=== PATIENT | male | born 1945 | race Caucasian/White ===

== ENCOUNTER 2018-03-12 08:24 | Day surgery (SDC) | payer MEDICARE ==
[~2018-03-12 08:24] MED LIST: ACETAMINOPHEN 325 MG TAB PO
[2018-03-12] MEDS ORDERED: PHENYLEPHRINE 2.5% OPHTH SOL 2ML As Ordered ×2 (08:43)
[2018-03-12] MEDS ORDERED: OFLOXACIN 0.3 % (OCUFLOX) OPTH SOL 5ML As Ordered ×2 (08:43)
[2018-03-12] MEDS ORDERED: CYCLOPENTOLATE 2% OPHTH SOLN 2ML BTL As Ordered ×2 (08:43)
[2018-03-12] MEDS ORDERED: TROPICAMIDE 1% OPHTH SOLN 2ML As Ordered ×2 (08:43)
[2018-03-12] MEDS: LIDOCAINE 3.5 % 1ML OPHTH TOPICAL GEL OU ×2 (09:05)
[2018-03-12] MEDS: CYCLOPENTOLATE 2% OPHTH SOLN 2ML BTL OD ×2 (09:05)
[2018-03-12] MEDS: PHENYLEPHRINE 2.5% OPHTH SOL 2ML OD ×2 (09:05)
[2018-03-12] MEDS: OFLOXACIN 0.3 % (OCUFLOX) OPTH SOL 5ML OD ×2 (09:05)
[2018-03-12] MEDS: TROPICAMIDE 1% OPHTH SOLN 2ML OD ×2 (09:05)
[2018-03-12] MEDS ORDERED: MIDAZOLAM INJ 2 MG/2 ML VIAL (J2250) As Ordered ×2 (09:51)
[2018-03-12] MEDS ORDERED: fentaNYL 100 MCG/2 ML INJECTION (J3010) As Ordered ×2 (09:51)
[2018-03-12] MEDS: POVIDONE-IODINE 5% OPHTH PREP SOL 30ML As Ordered ×2 (09:53)
[2018-03-12] MEDS: MOXIFLOXACIN IN BSS 0.25MG/0.25ML INTRACAMERAL INJ (OR EYE ONLY)(J2280) As Ordered (09:54)
[2018-03-12] MEDS: HEALON DUET (HEALON 10MG/ML 0.55ML & HEALON ENDOCOAT 30MG/ML 0.85ML) As Ordered ×2 (09:54)
[2018-03-12] MEDS: TRIAMCINOLONE PRES FR 40 MG/ML 1ML(TRIESENCE)(OR EYE ONLY)(J3300 PER 1MG) As Ordered ×2 (09:54)
[2018-03-12] MEDS: BSS with VANC/TOB/EPI for EYE CASES IR ×2 (09:54)
[2018-03-12] MEDS: PHENYLEPHRINE HCL 10 % OPHTH. SOL 5ML OD ×2 (09:54)
[2018-03-12] MEDS: LIDOCAINE 1% SDV 5 ML VIAL As Ordered ×2 (09:54)
[2018-03-12] MEDS ORDERED: TRIMETHOBENZAMIDE 300 MG CAP PO ×2 (10:30)
[2018-03-12] MEDS: AcetaZOLAMIDE 500 MG ER CAP PO ×2 (10:31)
== END 2018-03-12 10:38 | disposition home or self-care (01) ==
LOC: M SDC 08:24
DX: H25.9 Unspecified age-related cataract (principal); H21.81 Floppy iris syndrome; I25.10 Atherosclerotic heart disease of native coronary artery without angina pectoris; I10 Essential (primary) hypertension; E78.5 Hyperlipidemia, unspecified; J44.9 Chronic obstructive pulmonary disease, unspecified; Z79.82 Long term (current) use of aspirin; Z79.899 Other long term (current) drug therapy; Z92.3 Personal history of irradiation; Z85.46 Personal history of malignant neoplasm of prostate
CPT/HCPCS: 66982

== ENCOUNTER 2018-03-19 10:08 | Day surgery (SDC) | payer MEDICARE ==
[~2018-03-19 10:08] MED LIST changes: +PHENYLEPHRINE HCL 10 % OPHTH. SOL 5ML OS
[2018-03-19] MEDS ORDERED: CYCLOPENTOLATE 2% OPHTH SOLN 2ML BTL As Ordered (10:20)
[2018-03-19] MEDS ORDERED: TROPICAMIDE 1% OPHTH SOLN 2ML As Ordered (10:20)
[2018-03-19] MEDS ORDERED: PHENYLEPHRINE 2.5% OPHTH SOL 2ML As Ordered (10:20)
[2018-03-19] MEDS ORDERED: OFLOXACIN 0.3 % (OCUFLOX) OPTH SOL 5ML As Ordered (10:20)
[2018-03-19] MEDS ORDERED: TRIMETHOBENZAMIDE 300 MG CAP PO (10:30)
[2018-03-19] MEDS: CYCLOPENTOLATE 2% OPHTH SOLN 2ML BTL OS (10:44)
[2018-03-19] MEDS: TROPICAMIDE 1% OPHTH SOLN 2ML OS (10:45)
[2018-03-19] MEDS: LIDOCAINE 3.5 % 1ML OPHTH TOPICAL GEL OU (10:45)
[2018-03-19] MEDS: OFLOXACIN 0.3 % (OCUFLOX) OPTH SOL 5ML OS (10:45)
[2018-03-19] MEDS: PHENYLEPHRINE 2.5% OPHTH SOL 2ML OS (10:45)
[2018-03-19] MEDS: POVIDONE-IODINE 5% OPHTH PREP SOL 30ML As Ordered (11:32)
[2018-03-19] MEDS: LIDOCAINE 1% SDV 5 ML VIAL As Ordered (11:32)
[2018-03-19] MEDS ORDERED: MIDAZOLAM INJ 2 MG/2 ML VIAL (J2250) As Ordered (11:36)
[2018-03-19] MEDS ORDERED: fentaNYL 100 MCG/2 ML INJECTION (J3010) As Ordered (11:36)
[2018-03-19] MEDS: HEALON DUET (HEALON 10MG/ML 0.55ML & HEALON ENDOCOAT 30MG/ML 0.85ML) As Ordered (11:38)
[2018-03-19] MEDS: BSS with VANC/TOB/EPI for EYE CASES IR (11:39)
[2018-03-19] MEDS: TRIAMCINOLONE PRES FR 40 MG/ML 1ML(TRIESENCE)(OR EYE ONLY)(J3300 PER 1MG) As Ordered (11:39)
[2018-03-19] MEDS: MOXIFLOXACIN IN BSS 0.25MG/0.25ML INTRACAMERAL INJ (OR EYE ONLY)(J2280) As Ordered (11:39)
[2018-03-19] MEDS ORDERED: HEALON DUET (HEALON 10MG/ML 0.55ML & HEALON ENDOCOAT 30MG/ML 0.85ML) As Ordered (11:50)
[2018-03-19] MEDS: AcetaZOLAMIDE 500 MG ER CAP PO (12:18)
== END 2018-03-19 12:25 | disposition home or self-care (01) ==
LOC: M SDC 10:08
DX: H25.9 Unspecified age-related cataract (principal); I25.10 Atherosclerotic heart disease of native coronary artery without angina pectoris; Z95.1 Presence of aortocoronary bypass graft; J44.9 Chronic obstructive pulmonary disease, unspecified; Z85.46 Personal history of malignant neoplasm of prostate; Z92.3 Personal history of irradiation; Z79.899 Other long term (current) drug therapy
CPT/HCPCS: 66982

== ENCOUNTER → 2021-02-02 | Outpatient (CLI) | payer MEDICARE, SELFPAY ==
[~2021-02-02] MED LIST changes: -ACETAMINOPHEN 325 MG TAB PO; +AMLO1TAB25 PO; +ASPI81TA26 PO; +CALC500T49 PO; +CLOP75TA2 PO; +CRES40TA PO; +FOLI1TAB11 PO; +FURO20TA2 PO; +ISOVUE-370 76% 100ML VIAL As Ordered ONE; +METH2.5T48 PO; +METO25TA4 PO; +MULT1TAB10 PO; +OMEP40CA97 PO; +OREN250I2 IV; -PHENYLEPHRINE HCL 10 % OPHTH. SOL 5ML OS; +POTA10TA16 PO; +RAMI1CAP26 PO; +VITA100067 PO; +ZETI10TA16 PO
--- NOTE | 2021-02-02 13:47 | REP ---
INDICATION: RHEUMATOID LUNG DISEASE W RHEUMATOID ARTHRITIS OF COMPARISON: None. TECHNIQUE: Standard helical technique after the intravenous administration of 100 cc Isovue 370 FINDINGS: There is bulky mediastinal and right hilar adenopathy with more mild left hilar adenopathy and with some of the enlarged nodes being centrally and or eccentrically calcified. There are no pleural or pericardial effusions. The imaged upper abdomen and imaged osseous structures are within normal limits. Evaluation of the lung [place] shows multiple calcified and centrally calcifying pulmonary nodules. There are no noncalcified pulmonary nodules. In the medial right lung base there is a pleural based irregular density having a maximal dimension of approximately 1.3 cm. In the left lower lobe there is an asymmetric density which appears to be arising from a centrally calcified nodule this measures approximately 1.3 cm in its greatest dimension. Other pleural based asymmetric densities are seen. There is evidence of small bilateral upper lobe parenchymal bulla. Early honeycomb lung formation may be developing in both upper and lower lobe regions. IMPRESSION: 1. Pulmonary nodules as described above. 2. Suspected chronic lung field changes with no priors for comparison as described above. Follow-up as clinically indicated. 3. Adenopathy as described above. Etiology uncertain. Follow-up as indicated. 4. Other findings as described above. <Electronically signed by Freddy Alvarez > 02/02/21 [id number]
== END ==
LOC: M RAD 08:57
PROVIDERS: ATTEND Internal Medicine Pulmonary Disease
DX: M05.10 Rheumatoid lung disease with rheumatoid arthritis of unspecified site (principal); R91.8 Other nonspecific abnormal finding of lung field
CPT/HCPCS: 71260; Q9967

== ENCOUNTER → 2021-07-11 | Outpatient (CLI) | payer MEDICARE ==
[~2021-07-11] MED LIST changes: -ISOVUE-370 76% 100ML VIAL As Ordered ONE; +OMEP40CA4 PO; -OMEP40CA97 PO
--- NOTE | 2021-07-11 15:18 | REP ---
INDICATION: RHEUMATOID LUNG DISEASE W RHEUMATOID ARTHRITIS OF [facility] SITE COMPARISON: 02/02/2021 TECHNIQUE: Axial noncontrast images from the thoracic inlet to the upper abdomen with coronal and sagittal reformations. This CT examination was performed using the following dose reduction techniques: Automated exposure control, adjustment of mA and/or kv according to the patient's size, and use of iterative reconstruction technique. FINDINGS: Advanced emphysematous changes along with scattered fibrosis and scarring, scattered calcified nodules and partially calcified mediastinal/hilar adenopathy is unchanged when compared with 02/02/2021. There is new patchy airspace disease and areas of ill-defined consolidation involving the anterior left upper lobe. No effusion. No pneumothorax. Atherosclerotic changes to the thoracic aorta and coronary arteries without aortic aneurysm as well as mild cardiomegaly remains stable. No pericardial effusion. IMPRESSION: 1. Advanced chronic emphysematous changes along with findings consistent with the given history of chronic rheumatoid lung disease noted. 2. New areas of ill-defined consolidation and airspace disease involving the anterior left upper lobe suggests an acute inflammatory process and should be correlated clinically. Short-term follow-up examination in 3-6 months may be warranted to confirm resolution. <Electronically signed by Momo Morel > 07/11/21 [id number]
== END ==
LOC: M RAD 14:00
PROVIDERS: ATTEND Internal Medicine Pulmonary Disease
DX: M05.10 Rheumatoid lung disease with rheumatoid arthritis of unspecified site (principal); R05.9 Cough, unspecified; R91.8 Other nonspecific abnormal finding of lung field

== ENCOUNTER → 2021-10-13 | Outpatient (CLI) | payer MEDICARE ==
[~2021-10-13] MED LIST changes: +ISOVUE-370 76% 100ML VIAL As Ordered ONE; +POTA-149 PO; -POTA10TA16 PO
== END ==
LOC: M RAD 07:36
PROVIDERS: ATTEND Internal Medicine Pulmonary Disease
DX: R91.8 Other nonspecific abnormal finding of lung field (principal)
CPT/HCPCS: 71260; Q9967

== ENCOUNTER → 2021-10-27 | Outpatient (CLI) | payer MEDICARE | LOC: M RAD 08:43 | PROVIDERS: ATTEND Surgery Vascular Surgery | DX: I70.209 Unspecified atherosclerosis of native arteries of extremities, unspecified extremity (principal) | CPT/HCPCS: 75635; Q9967 ==

== ENCOUNTER → 2021-10-30 | Outpatient (CLI) | payer MEDICARE ==
[~2021-10-30] MED LIST changes: -ISOVUE-370 76% 100ML VIAL As Ordered ONE
== END ==
LOC: M RAD 13:16
PROVIDERS: ATTEND Physician Assistant
DX: I73.9 Peripheral vascular disease, unspecified (principal)

== ENCOUNTER 2023-01-04 10:15 | Emergency (ER) | payer MEDICARE ==
[~2023-01-04] VITALS: Ht 175.3 cm; Wt 93.5 kg
[2023-01-04 10:15] VITALS: BP 137/62
[2023-01-04 12:36] LABS: ABG BASE EXCESS -4.3 (-2.0-2.0); ABG HCO3 19.8 MMOL/L (22.0-26.0); ABG O2 SATURATION 95.3 % (95.0-99.0); ABG PARTIAL PRESSURE O2 80.9 mmHg (75.0-100.0); ABG STANDARD HCO3 20.8 MMOL/L. (22.0-26.0); ABG TOTAL CO2 20.9 MMOL/L (23.0-31.0); ABG pH (ARTERIAL) 7.397 UNITS (7.350-7.450)
[2023-01-04 12:38] LABS: BASO % 0.5 % (0.0-1.0); EOS % 0.6 % (0.0-3.0); HEMATOCRIT 32.1 % (42.0-52.0); HEMOGLOBIN 9.9 g/dl (13.5-17.5); LYMPH # 2.2 10^3/uL (1.5-5.0); LYMPH % 34.9 % (24.0-44.0); MEAN CORPUSCULAR HEMOGLOBIN 27.5 pg (27.0-33.0); MEAN CORPUSCULAR HGB CONC 30.8 g/dl (32.0-36.5); MEAN CORPUSCULAR VOLUME 89.2 fl (80.0-96.0); MONO % 15.9 % (2.0-8.0); NEUTROPHILS # 2.9 10^3/uL (1.5-8.5); NEUTROPHILS % 47.3 % (36.0-66.0); PLATELET COUNT, AUTOMATED 174 10^3/uL (150-450); WHITE BLOOD COUNT 6.2 10^3/uL (4.0-10.0)
[2023-01-04 13:08] LABS: CK-MB VALUE MASS 2.1 NG/ML (<3.6)
[2023-01-04 13:10] LABS: MB/CK RELATIVE INDEX 2.01 (< OR =4)
[2023-01-04 13:11] LABS: CALCIUM LEVEL 8.6 MG/DL (8.3-10.6); CREATININE FOR GFR 1.49 MG/DL (0.70-1.30); GLOMERULAR FILTRATION RATE 48.6 (>42); POTASSIUM SERUM 4.2 MMOL/L (3.5-5.1)
[2023-01-04] MEDS ORDERED: PRED10TA2 PO (13:26)
[2023-01-04 13:53] LABS: RSV AMPLIFICATION NEGATIVE (NEGATIVE)
== END 2023-01-04 13:32 | disposition home or self-care (01) ==
LOC: M ED 10:15
DX: J44.1 Chronic obstructive pulmonary disease with (acute) exacerbation (principal); I25.10 Atherosclerotic heart disease of native coronary artery without angina pectoris; I10 Essential (primary) hypertension; J44.9 Chronic obstructive pulmonary disease, unspecified; Z79.899 Other long term (current) drug therapy; Z79.82 Long term (current) use of aspirin

== ENCOUNTER → 2023-02-03 | Outpatient (REF) | payer MEDICARE ==
[~2023-02-03] MED LIST changes: +PRED10TA2 PO
== END ==
LOC: M LAB REF 17:24
PROVIDERS: ATTEND Physician Assistant Medical
DX: B34.9 Viral infection, unspecified (principal)

== ENCOUNTER 2024-01-09 21:19 | Inpatient (IN) | payer MEDICARE ==
[~2024-01-09] VITALS: Ht 175.3 cm; Wt 86.3 kg
[~2024-01-09 21:19] MED LIST changes: +EZET10TA58 PO; +RAMI10CA64 PO; -RAMI1CAP26 PO; -ZETI10TA16 PO
[2024-01-09 23:24] LABS: BASO # 0.1 10^3/uL (0.0-0.2); BASO % 1.1 % (0.0-1.0); EOS % 0.4 % (0.0-3.0); HEMATOCRIT 32.4 % (42.0-52.0); HEMOGLOBIN 10.4 g/dl (13.5-17.5); LYMPH # 2.2 10^3/uL (1.5-5.0); LYMPH % 30.6 % (24.0-44.0); MEAN CORPUSCULAR HEMOGLOBIN 27.1 pg (27.0-33.0); MEAN CORPUSCULAR HGB CONC 32.1 g/dl (32.0-36.5); MEAN CORPUSCULAR VOLUME 84.4 fl (80.0-96.0); MONO # 1.2 10^3/uL (0.0-0.8); NEUTROPHILS # 3.6 10^3/uL (1.5-8.5); NEUTROPHILS % 50.5 % (36.0-66.0); PLATELET COUNT, AUTOMATED 209 10^3/uL (150-450); RED BLOOD COUNT 3.84 10^6/uL (4.30-6.10); WHITE BLOOD COUNT 7.2 10^3/uL (4.0-10.0)
[2024-01-09] MEDS: ACETAMINOPHEN TAB 650MG DOSE (2X325MG) PO ONE (23:42)
[2024-01-09 23:54] LABS: ALBUMIN 3.1 G/DL (3.2-5.2); BILIRUBIN,DIRECT 0.4 MG/DL (<0.4); BILIRUBIN,TOTAL 1.1 MG/DL (0.3-1.2); CALCIUM LEVEL 8.4 MG/DL (8.3-10.6); CK-MB VALUE MASS 1.2 NG/ML (<3.6); CREATININE FOR GFR 1.26 MG/DL (0.70-1.30); GLOMERULAR FILTRATION RATE 58.8 (>42); POTASSIUM SERUM 4.5 MMOL/L (3.5-5.1); TOTAL PROTEIN 6.9 G/DL (5.7-8.2)
[2024-01-09 23:57] LABS: THYROID STIMULATING HORMONE 0.696 uIU/ML (0.55-4.78)
[2024-01-10 00:01] LABS: MB/CK RELATIVE INDEX 1.15 (< OR =4)
[2024-01-10] MEDS: PIPERACILLIN/TAZOBACTAM SOD 4.5 GM in D5W MINI-BAG PLUS 50 ML IV ONE (00:55)
[2024-01-10] MEDS: NS 1,000 ML IV SCH ×2 (00:55→05:13)
[2024-01-10] MEDS ORDERED: ALBUTEROL SULFATE 2.5MG/0.5ML INH NEB SOLN NEB PRN (02:50)
[2024-01-10 04:01] VITALS: BP 157/71; TEMP 98.1; O2SAT 99
[2024-01-10 06:34] LABS: BLOOD UREA NITROGEN 16 MG/DL (9-23); CALCIUM LEVEL 8.5 MG/DL (8.3-10.6); CARBON DIOXIDE LEVEL 22 MMOL/L (20-31); CHLORIDE LEVEL 102 MMOL/L (98-107); CREATININE FOR GFR 1.19 MG/DL (0.70-1.30); GLOMERULAR FILTRATION RATE > 60.0 (>42); GLUCOSE, FASTING 75 MG/DL (74-106); SODIUM LEVEL 135 MMOL/L (136-145)
[2024-01-10] MEDS ORDERED: PIPERACILLIN/TAZOBACTAM SOD 3.375 GM in D5W MINI-BAG PLUS 50 ML IV SCH (08:00)
[2024-01-10] MEDS: cefTRIAXone SOD 1 GM in D5W MINI-BAG PLUS 50 ML IV SCH (08:16)
[2024-01-10] MEDS: HEPARIN SOD (PORCINE) 5000UNITS/ML 1ML VIAL/SYRINGE SC SCH (08:16)
[2024-01-10 14:00] VITALS: BP 146/75; TEMP 98.8; O2SAT 98
[2024-01-10] MEDS ORDERED: VITA500C24 PO (14:46)
[2024-01-10] MEDS ORDERED: SYMB80INH INH (14:46)
[2024-01-10] MEDS ORDERED: JARD1TAB PO (14:47)
[2024-01-10] MEDS ORDERED: OYST1TAB PO (14:47)
[2024-01-10] MEDS ORDERED: FURO20TA2 PO (14:47)
[2024-01-10] MEDS ORDERED: ARNU1INH3 INH (14:47)
[2024-01-10] MEDS ORDERED: CLOP75TA2 PO (14:47)
[2024-01-10] MEDS ORDERED: D3 S20002 PO (14:47)
[2024-01-10] MEDS ORDERED: MULTTAB61 PO (14:47)
[2024-01-10] MEDS ORDERED: ISOS1TAB36 PO (14:47)
[2024-01-10] MEDS ORDERED: NITR0.4S14 SL (14:47)
[2024-01-10] MEDS ORDERED: OMEG12004 PO (14:47)
[2024-01-10] MEDS ORDERED: RANO10002 PO (14:47)
[2024-01-10] MEDS ORDERED: XIID5DRO OU (14:50)
[2024-01-10] MEDS ORDERED: VENTAER INH (14:50)
[2024-01-10] MEDS ORDERED: HOME MED LIST COMPLETE! XX SCH (14:55)
[2024-01-10] MEDS: ONDANSETRON 4MG TAB PO PRN (14:58)
[2024-01-10 17:24] VITALS: TEMP 100.3
[2024-01-10 18:30] VITALS: TEMP 100.3
[2024-01-10] MEDS ORDERED: PANT40TA29 PO (19:46)
[2024-01-10] MEDS ORDERED: MELA3TAB30 PO (19:47)
[2024-01-10] MEDS ORDERED: APAP325T4 PO (19:50)
[2024-01-10] MEDS: OYSTER SHELL CALCIUM 500 MG TAB PO SCH (20:37)
[2024-01-10] MEDS: RAMELTEON 8 MG TAB (ROZEREM) PO SCH (20:38)
[2024-01-10] MEDS: METOPROLOL TART 25 MG TABLET PO SCH (20:38)
[2024-01-10] MEDS ORDERED: POTASSIUM CHLORIDE 10MEQ SR TABLET PO SCH (21:00)
[2024-01-10 22:00] VITALS: BP 133/80; TEMP 98.2; O2SAT 93
[2024-01-10] MEDS: RANOLAZINE 500MG ER TAB PO SCH (22:56)
[2024-01-10] MEDS: NYSTATIN 100,000 UNITS/GM TOPICAL PWD 15GM TOP SCH (22:56)
[2024-01-11 06:00] VITALS: BP 120/49; TEMP 97.7; O2SAT 96
[2024-01-11 07:23] LABS: HEMATOCRIT 31.4 % (42.0-52.0); MEAN CORPUSCULAR HEMOGLOBIN 26.7 pg (27.0-33.0); MEAN CORPUSCULAR HGB CONC 31.8 g/dl (32.0-36.5); PLATELET COUNT, AUTOMATED 170 10^3/uL (150-450); RED BLOOD COUNT 3.74 10^6/uL (4.30-6.10); WHITE BLOOD COUNT 5.3 10^3/uL (4.0-10.0)
[2024-01-11 07:55] LABS: ALBUMIN 2.5 G/DL (3.2-5.2); ALKALINE PHOSPHATASE 84 U/L (46-116); ALT/SGPT < 9 U/L (7.0-40); AST/SGOT 16 U/L (<34); BILIRUBIN,TOTAL 0.6 MG/DL (0.3-1.2); BLOOD UREA NITROGEN 15 MG/DL (9-23); CALCIUM LEVEL 8.1 MG/DL (8.3-10.6); CARBON DIOXIDE LEVEL 22 MMOL/L (20-31); CHLORIDE LEVEL 105 MMOL/L (98-107); CREATININE FOR GFR 1.09 MG/DL (0.70-1.30); GLOMERULAR FILTRATION RATE > 60.0 (>42); GLUCOSE, FASTING 104 MG/DL (74-106); POTASSIUM SERUM 3.7 MMOL/L (3.5-5.1); SODIUM LEVEL 135 MMOL/L (136-145)
[2024-01-11] MEDS: SYMBICORT 80/4.5MCG INHALER 6GM INH SCH (08:13)
[2024-01-11] MEDS ORDERED: OMEPRAZOLE 20MG CAP PO SCH (09:00)
[2024-01-11] MEDS: MULTIVITAMINS/MINERALS THERAP 1 TAB PO SCH (09:08)
[2024-01-11] MEDS: ASPIRIN 81MG ENTERIC TABLET PO SCH (09:08)
[2024-01-11] MEDS: FOLIC ACID 1MG TAB PO SCH (09:09)
[2024-01-11] MEDS: ROSUVASTATIN 10 MG TAB (CRESTOR) PO SCH (09:11)
[2024-01-11] MEDS: CLOPIDOGREL 75 MG TAB PO SCH (09:11)
[2024-01-11] MEDS: PANTOPRAZOLE 40MG TAB (PROTONIX) PO SCH (09:11)
[2024-01-11] MEDS: ASCORBIC ACID 500 MG TAB PO SCH (09:11)
[2024-01-11] MEDS: EZETIMIBE 10MG TABLET (ZETIA) PO SCH (09:12)
[2024-01-11] MEDS: FUROSEMIDE 20 MG TAB PO SCH (09:12)
[2024-01-11] MEDS: ramipriL 5 MG CAP PO SCH (09:17)
[2024-01-11] MEDS: ISOSORBIDE MON. (IMDUR) 60MG XR TAB PO SCH (09:17)
[2024-01-11 09:50] LABS: INR 1.12; PARTIAL THROMBOPLASTIN TIME 26.1 SECONDS (24.8-34.2); PROTHROMBIN TIME 14.1 SECONDS (12.5-14.5)
[2024-01-11 14:48] VITALS: BP 92/40; TEMP 97.7; O2SAT 98
[2024-01-11 15:40] VITALS: BP 110/56
[2024-01-11 22:00] VITALS: BP 109/59; TEMP 98.1; O2SAT 97
[2024-01-12 06:00] VITALS: BP 146/53; TEMP 97.3; O2SAT 96
[2024-01-12 06:45] LABS: HEMATOCRIT 30.6 % (42.0-52.0); HEMOGLOBIN 9.7 g/dl (13.5-17.5); MEAN CORPUSCULAR HEMOGLOBIN 26.7 pg (27.0-33.0); MEAN CORPUSCULAR HGB CONC 31.7 g/dl (32.0-36.5); MEAN CORPUSCULAR VOLUME 84.3 fl (80.0-96.0); PLATELET COUNT, AUTOMATED 160 10^3/uL (150-450); RED BLOOD COUNT 3.63 10^6/uL (4.30-6.10); WHITE BLOOD COUNT 4.9 10^3/uL (4.0-10.0)
[2024-01-12 07:10] LABS: ALBUMIN 2.6 G/DL (3.2-5.2); ALKALINE PHOSPHATASE 84 U/L (46-116); ALT/SGPT 10 U/L (7.0-40); AST/SGOT 16 U/L (<34); BILIRUBIN,TOTAL 0.5 MG/DL (0.3-1.2); BLOOD UREA NITROGEN 15 MG/DL (9-23); CALCIUM LEVEL 8.2 MG/DL (8.3-10.6); CARBON DIOXIDE LEVEL 22 MMOL/L (20-31); CHLORIDE LEVEL 104 MMOL/L (98-107); CREATININE FOR GFR 1.18 MG/DL (0.70-1.30); GLOMERULAR FILTRATION RATE > 60.0 (>42); GLUCOSE, FASTING 102 MG/DL (74-106); POTASSIUM SERUM 3.7 MMOL/L (3.5-5.1); SODIUM LEVEL 136 MMOL/L (136-145); TOTAL PROTEIN 6.1 G/DL (5.7-8.2)
[2024-01-12 14:40] VITALS: BP 115/48; TEMP 97.7; O2SAT 98
[2024-01-12 20:14] VITALS: BP 124/65; TEMP 97.9; O2SAT 96
[2024-01-13 05:00] VITALS: BP 130/61; TEMP 97.5; O2SAT 98
[2024-01-13] MEDS: ACETAMINOPHEN TAB 650MG DOSE (2X325MG) PO PRN (05:13)
[2024-01-13 06:05] VITALS: BP 117/65; TEMP 97.9; O2SAT 78
[2024-01-13 06:11] LABS: HEMATOCRIT 29.4 % (42.0-52.0); HEMOGLOBIN 9.3 g/dl (13.5-17.5); MEAN CORPUSCULAR HEMOGLOBIN 26.7 pg (27.0-33.0); MEAN CORPUSCULAR HGB CONC 31.6 g/dl (32.0-36.5); MEAN CORPUSCULAR VOLUME 84.5 fl (80.0-96.0); PLATELET COUNT, AUTOMATED 171 10^3/uL (150-450); RED BLOOD COUNT 3.48 10^6/uL (4.30-6.10); WHITE BLOOD COUNT 4.7 10^3/uL (4.0-10.0)
[2024-01-13 06:45] LABS: ALBUMIN 2.4 G/DL (3.2-5.2); ALKALINE PHOSPHATASE 80 U/L (46-116); ALT/SGPT < 9 U/L (7.0-40); AST/SGOT 14 U/L (<34); BILIRUBIN,TOTAL 0.3 MG/DL (0.3-1.2); BLOOD UREA NITROGEN 14 MG/DL (9-23); CARBON DIOXIDE LEVEL 24 MMOL/L (20-31); CHLORIDE LEVEL 106 MMOL/L (98-107); CREATININE FOR GFR 1.04 MG/DL (0.70-1.30); GLOMERULAR FILTRATION RATE > 60.0 (>42); GLUCOSE, FASTING 119 MG/DL (74-106); SODIUM LEVEL 137 MMOL/L (136-145); TOTAL PROTEIN 5.7 G/DL (5.7-8.2)
[2024-01-13 10:03] VITALS: BP 117/65
[2024-01-13 14:21] VITALS: BP 128/57; TEMP 97; O2SAT 100
== END 2024-01-13 19:17 | disposition home health service (06) | DRG 871 ==
LOC: M ED 21:19 → M ED INP 01-10 02:20 → M MSPAV 01-10 04:00
PROVIDERS: ADMIT Internal Medicine; ATTEND Internal Medicine
DX: A41.9 Sepsis, unspecified organism (principal); G93.41 Metabolic encephalopathy; I50.22 Chronic systolic (congestive) heart failure; I13.0 Hypertensive heart and chronic kidney disease with heart failure and stage 1 through stage 4 chronic kidney disease, or unspecified chronic kidney disease; N39.0 Urinary tract infection, site not specified; J98.11 Atelectasis; F05 Delirium due to known physiological condition; R65.20 Severe sepsis without septic shock; I73.9 Peripheral vascular disease, unspecified; I25.10 Atherosclerotic heart disease of native coronary artery without angina pectoris; N18.30 Chronic kidney disease, stage 3 unspecified; K21.9 Gastro-esophageal reflux disease without esophagitis; J44.9 Chronic obstructive pulmonary disease, unspecified; M06.9 Rheumatoid arthritis, unspecified; Z85.46 Personal history of malignant neoplasm of prostate; Z92.3 Personal history of irradiation; Z79.82 Long term (current) use of aspirin; Z95.828 Presence of other vascular implants and grafts; Z79.899 Other long term (current) drug therapy; Z11.52 Encounter for screening for COVID-19; Z86.73 Personal history of transient ischemic attack (TIA), and cerebral infarction without residual deficits; Z95.5 Presence of coronary angioplasty implant and graft

== ENCOUNTER → 2024-04-15 | Outpatient (CLI) | payer MEDICARE ==
[~2024-04-15] MED LIST changes: +APAP325T4 PO; +ARNU1INH3 INH; +D3 S20002 PO; +ISOS1TAB36 PO; +JARD1TAB PO; +MELA3TAB30 PO; +MULTTAB61 PO; +NITR0.4S14 SL; +OMEG12004 PO; +OYST1TAB PO; +PANT40TA29 PO; +RANO10002 PO; +SYMB80INH INH; +VENTAER INH; +VITA500C24 PO; +XIID5DRO OU
== END ==
LOC: M RAD 13:59
PROVIDERS: ATTEND Internal Medicine Pulmonary Disease
DX: M05.10 Rheumatoid lung disease with rheumatoid arthritis of unspecified site (principal)

== ENCOUNTER 2025-06-10 11:13 | Outpatient (CLI) | payer MEDICARE ==
[~2025-06-10] VITALS: Ht 175.3 cm; Wt 86.0 kg
[~2025-06-10 11:13] MED LIST changes: +ALBUTEROL SULFATE 2.5 MG/0.5 ML INH CONCENTRATE NEB SOLN INH PRN; +AMLO1TAB24 PO; +BRIL90TA PO; +CALCCAP4 PO; +EPINEPHrine INJ 1 MG/ML 1ML AMP IM PRN; +FERR324T21 PO; +FERR32TA PO; +LIFI1DRO4 OU; +MEMA10TA PO; +RANO500T2 PO; -XIID5DRO OU; +diphenhydrAMINE 50 MG/ML VIAL IV PRN
[2025-06-10 11:40] VITALS: BP 144/71; O2SAT 94
[2025-06-10] MEDS: IRON SUCROSE 300 MG in NS 250 ML IV ONE (11:54)
== END 2025-06-10 14:45 ==
LOC: EDBD → M INFU 11:13
PROVIDERS: ATTEND Internal Medicine Pulmonary Disease
DX: D64.9 Anemia, unspecified (principal)
CPT/HCPCS: 96365; 96366; J1756

== ENCOUNTER 2025-06-11 14:35 | Inpatient (IN) | payer MEDICARE ==
[2025-06-11] VITALS (9 sets, daily range): BP systolic 104–144; BP diastolic 53–66; TEMP 96.6–97.5; O2SAT 98–100
[~2025-06-11] VITALS: Ht 175.3 cm; Wt 88.7 kg
[~2025-06-11 14:35] MED LIST changes: -ALBUTEROL SULFATE 2.5 MG/0.5 ML INH CONCENTRATE NEB SOLN INH PRN; -EPINEPHrine INJ 1 MG/ML 1ML AMP IM PRN; -diphenhydrAMINE 50 MG/ML VIAL IV PRN
[2025-06-11 15:15] LABS: VENOUS BASE EXCESS -1.6 (-2.0-2.0); VENOUS HCO3 23.2 MMOL/L (23.0-27.0); VENOUS O2 SATURATION 53.6 % (60.0-80.0); VENOUS PARTIAL PRESSURE CO2 39.6 mmHg (38.0-50.0); VENOUS PARTIAL PRESSURE O2 31.9 mmHg (30.0-50.0); VENOUS PH 7.386 UNITS (7.330-7.430); VENOUS STANDARD HCO3 22.5 MMOL/L; VENOUS TOTAL CO2 24.4 MMOL/L (24.0-28.0)
[2025-06-11 15:19] LABS: BASO # 0.1 10^3/uL (0.0-0.2); BASO % 1.0 % (0.0-1.0); EOS # 0.1 10^3/uL (0.0-0.5); EOS % 0.9 % (0.0-3.0); LYMPH # 2.5 10^3/uL (1.5-5.0); LYMPH % 32.4 % (24.0-44.0); MONO # 1.2 10^3/uL (0.0-0.8); MONO % 15.6 % (2.0-8.0); NEUTROPHILS # 3.5 10^3/uL (1.5-8.5); NEUTROPHILS % 45.1 % (36.0-66.0); PLATELET COUNT, AUTOMATED 258 10^3/uL (150-450)
[2025-06-11 15:29] LABS: INR 1.01
[2025-06-11 15:47] LABS: ALT/SGPT 14.0 U/L (7.0-40); AST/SGOT 25.0 U/L (<34); CALCIUM LEVEL 9.3 MG/DL (8.3-10.6); CARBON DIOXIDE LEVEL 25.0 MMOL/L (20-31); CHLORIDE LEVEL 108.0 MMOL/L (98-107); CREATININE FOR GFR 1.6 MG/DL (0.70-1.30); GLOMERULAR FILTRATION RATE 42.5 (>35); POTASSIUM SERUM 4.2 MMOL/L (3.5-5.1); SODIUM LEVEL 146.0 MMOL/L (136-145)
[2025-06-11] MEDS: PANTOPRAZOLE 40MG VIAL IV ONE (17:41)
[2025-06-11] MEDS: PANTOPRAZOLE SODIUM 40 MG in D5W 50 ML IV SCH (17:42)
[2025-06-11] MEDS ORDERED: HOME MED LIST COMPLETE! XX SCH (18:20)
[2025-06-11] MEDS ORDERED: NITROGLYCERIN 0.4 MG SUBL TABLET SL PRN (18:55)
[2025-06-11] MEDS ORDERED: ALBUTEROL 90 MCG/ACT 8 GM HFA INHALER INH PRN (18:55)
[2025-06-11] MEDS: NS (Normal Saline) 0.9% 1,000 ML IV SCH (19:09)
[2025-06-11] MEDS: METOPROLOL TART 12.5 MG PER 1/2 TAB PO SCH (20:48)
[2025-06-11] MEDS: RANOLAZINE 500MG ER TAB PO SCH (22:20)
[2025-06-12] VITALS (8 sets, daily range): BP systolic 103–127; BP diastolic 52–74; TEMP 96.9–98.1; O2SAT 92–100
[2025-06-12 06:16] LABS: PLATELET COUNT, AUTOMATED 193 10^3/uL (150-450)
[2025-06-12 06:32] LABS: CALCIUM LEVEL 7.8 MG/DL (8.3-10.6); CARBON DIOXIDE LEVEL 25.0 MMOL/L (20-31); CHLORIDE LEVEL 109.0 MMOL/L (98-107); CREATININE FOR GFR 1.41 MG/DL (0.70-1.30); GLOMERULAR FILTRATION RATE 50.1 (>35); POTASSIUM SERUM 3.9 MMOL/L (3.5-5.1); SODIUM LEVEL 145.0 MMOL/L (136-145)
[2025-06-12 07:53] LABS: CK-MB VALUE MASS 3.8 NG/ML (<3.6)
[2025-06-12 07:54] LABS: CPK CREATINE PHOSPHOKINASE 71.0 U/L (46-171); MB/CK RELATIVE INDEX 5.35 (< OR =4)
[2025-06-12] MEDS: FOLIC ACID 1 MG TAB PO SCH (08:12)
[2025-06-12] MEDS: EZETIMIBE 10 MG TABLET PO SCH (08:12)
[2025-06-12] MEDS: ASPIRIN 81 MG ENTERIC TABLET PO SCH (08:12)
[2025-06-12] MEDS: FERROUS GLUCONATE 324 MG TAB PO SCH (08:12)
[2025-06-12] MEDS: ISOSORBIDE MONONITRATE 60 MG XR TAB PO SCH (08:13)
[2025-06-12] MEDS: ASCORBIC ACID 500 MG TAB PO SCH (08:13)
[2025-06-12] MEDS: ROSUVASTATIN 10 MG TAB PO SCH (08:13)
[2025-06-12] MEDS: NS (Normal Saline) 0.9% 1,000 ML IV SCH (11:13)
[2025-06-13 03:31] VITALS: BP 121/58; TEMP 98.2; O2SAT 92
[2025-06-13 05:29] LABS: PLATELET COUNT, AUTOMATED 183 10^3/uL (150-450)
[2025-06-13 05:49] LABS: CALCIUM LEVEL 7.8 MG/DL (8.3-10.6); CARBON DIOXIDE LEVEL 24.0 MMOL/L (20-31); CHLORIDE LEVEL 114.0 MMOL/L (98-107); CREATININE FOR GFR 1.39 MG/DL (0.70-1.30); GLOMERULAR FILTRATION RATE 50.9 (>35); POTASSIUM SERUM 4.0 MMOL/L (3.5-5.1); SODIUM LEVEL 146.0 MMOL/L (136-145)
[2025-06-13] MEDS: PANTOPRAZOLE 40MG TAB PO SCH (08:40)
[2025-06-13] MEDS: NS 0.45% 1,000 ML IV SCH (08:41)
[2025-06-13 09:17] VITALS: BP 112/56; TEMP 97.9; O2SAT 97
[2025-06-13 12:01] VITALS: BP 145/64; TEMP 98.4; O2SAT 94
[2025-06-13 16:00] VITALS: BP 136/66; TEMP 98.2; O2SAT 94
[2025-06-13 20:39] VITALS: BP 137/65; TEMP 97.9; O2SAT 92
[2025-06-13 23:50] LABS: CALCIUM LEVEL 7.4 MG/DL (8.3-10.6); CARBON DIOXIDE LEVEL 21.0 MMOL/L (20-31); CHLORIDE LEVEL 113.0 MMOL/L (98-107); CREATININE FOR GFR 1.28 MG/DL (0.70-1.30); GLOMERULAR FILTRATION RATE 56.2 (>35); POTASSIUM SERUM 3.7 MMOL/L (3.5-5.1); SODIUM LEVEL 145.0 MMOL/L (136-145)
[2025-06-14 05:17] VITALS: BP 140/66; TEMP 97.6; O2SAT 96
[2025-06-14 08:19] LABS: PLATELET COUNT, AUTOMATED 221 10^3/uL (150-450)
[2025-06-14 08:30] VITALS: BP 140/66
[2025-06-14 08:49] LABS: CALCIUM LEVEL 7.5 MG/DL (8.3-10.6); CARBON DIOXIDE LEVEL 21.0 MMOL/L (20-31); CHLORIDE LEVEL 112.0 MMOL/L (98-107); CREATININE FOR GFR 1.13 MG/DL (0.70-1.30); GLOMERULAR FILTRATION RATE 65.3 (>35); POTASSIUM SERUM 3.9 MMOL/L (3.5-5.1); SODIUM LEVEL 144.0 MMOL/L (136-145)
[2025-06-14 14:00] VITALS: BP 128/58; TEMP 97.2; O2SAT 91
== END 2025-06-14 16:50 | disposition home health service (06) | DRG 811 ==
LOC: M ED 14:35 → EDBD 14:35 → M ED INP 17:09 → M PCU 21:42 → M MS5PR 06-13 10:57
PROVIDERS: ADMIT General Practice; ATTEND General Practice
PROC: 30233N1 Transfusion of Nonautologous Red Blood Cells into Peripheral Vein, Percutaneous Approach (ICD-10-PCS; principal; 2025-06-11)
DX: D50.0 Iron deficiency anemia secondary to blood loss (chronic) (principal); K55.21 Angiodysplasia of colon with hemorrhage; I50.22 Chronic systolic (congestive) heart failure; I13.0 Hypertensive heart and chronic kidney disease with heart failure and stage 1 through stage 4 chronic kidney disease, or unspecified chronic kidney disease; N17.9 Acute kidney failure, unspecified; E87.0 Hyperosmolality and hypernatremia; I35.0 Nonrheumatic aortic (valve) stenosis; I25.10 Atherosclerotic heart disease of native coronary artery without angina pectoris; N18.31 Chronic kidney disease, stage 3a; K44.9 Diaphragmatic hernia without obstruction or gangrene; K57.30 Diverticulosis of large intestine without perforation or abscess without bleeding; K64.8 Other hemorrhoids; M06.9 Rheumatoid arthritis, unspecified; I25.2 Old myocardial infarction; I73.9 Peripheral vascular disease, unspecified; J44.9 Chronic obstructive pulmonary disease, unspecified; G47.33 Obstructive sleep apnea (adult) (pediatric); E78.5 Hyperlipidemia, unspecified; R53.1 Weakness; Z95.5 Presence of coronary angioplasty implant and graft; Z95.820 Peripheral vascular angioplasty status with implants and grafts; Z79.82 Long term (current) use of aspirin; Z79.899 Other long term (current) drug therapy; Z85.46 Personal history of malignant neoplasm of prostate; Z92.3 Personal history of irradiation; Z86.73 Personal history of transient ischemic attack (TIA), and cerebral infarction without residual deficits

== ENCOUNTER 2025-06-30 12:38 | Outpatient (CLI) | payer MEDICARE ==
[~2025-06-30] VITALS: Ht 175.3 cm; Wt 87.0 kg
[~2025-06-30 12:38] MED LIST changes: +ALBUTEROL SULFATE 2.5 MG/0.5 ML INH CONCENTRATE NEB SOLN INH PRN; +EPINEPHrine INJ 1 MG/ML 1ML AMP IM PRN; +diphenhydrAMINE 50 MG/ML VIAL IV PRN
[2025-06-30 13:00] VITALS: BP 118/59; O2SAT 92
[2025-06-30] MEDS: IRON SUCROSE 300 MG in NS 250 ML IV ONE (13:09)
[2025-06-30 14:50] VITALS: BP 136/63; O2SAT 95
== END 2025-06-30 14:50 | disposition home or self-care (01) ==
LOC: EDBD → M INFU 12:38
PROVIDERS: ATTEND Internal Medicine Pulmonary Disease
DX: D64.9 Anemia, unspecified (principal)
CPT/HCPCS: 96365; 96366; J1756

== ENCOUNTER 2025-07-22 21:53 | Observation (INO) | payer MEDICARE ==
[~2025-07-22] VITALS: Ht 175.3 cm; Wt 92.0 kg
[~2025-07-22 21:53] MED LIST changes: -ALBUTEROL SULFATE 2.5 MG/0.5 ML INH CONCENTRATE NEB SOLN INH PRN; +COLA100C5 PO; -EPINEPHrine INJ 1 MG/ML 1ML AMP IM PRN; -diphenhydrAMINE 50 MG/ML VIAL IV PRN
[2025-07-23] VITALS (8 sets, daily range): BP systolic 82–144; BP diastolic 48–67; TEMP 98.1–98.9; O2SAT 94–98
[2025-07-23 00:12] LABS: CK-MB VALUE MASS 5.0 NG/ML (<3.6)
[2025-07-23 00:13] LABS: ALT/SGPT 12.0 U/L (7.0-40); AST/SGOT 34.0 U/L (<34); CALCIUM LEVEL 8.3 MG/DL (8.3-10.6); CARBON DIOXIDE LEVEL 21.0 MMOL/L (20-31); CHLORIDE LEVEL 108.0 MMOL/L (98-107); CREATININE FOR GFR 1.32 MG/DL (0.70-1.30); GLOMERULAR FILTRATION RATE 54.2 (>35); POTASSIUM SERUM 4.4 MMOL/L (3.5-5.1); SODIUM LEVEL 142.0 MMOL/L (136-145)
[2025-07-23 00:20] LABS: BASO # 0.1 10^3/uL (0.0-0.2); BASO % 1.1 % (0.0-1.0); EOS # 0.1 10^3/uL (0.0-0.5); EOS % 1.3 % (0.0-3.0); LYMPH # 1.9 10^3/uL (1.5-5.0); LYMPH % 34.6 % (24.0-44.0); MONO # 0.8 10^3/uL (0.0-0.8); MONO % 14.6 % (2.0-8.0); NEUTROPHILS # 2.6 10^3/uL (1.5-8.5); NEUTROPHILS % 48.0 % (36.0-66.0); PLATELET COUNT, AUTOMATED 212 10^3/uL (150-450)
[2025-07-23 00:26] LABS: CPK CREATINE PHOSPHOKINASE 113.0 U/L (46-171); MB/CK RELATIVE INDEX 4.42 (< OR =4)
[2025-07-23] MEDS ORDERED: ISOVUE-370 76% 100 ML VIAL As Ordered ONE (01:06)
[2025-07-23 01:50] LABS: INR 0.93
[2025-07-23 03:17] LABS: CK-MB VALUE MASS 3.1 NG/ML (<3.6)
[2025-07-23 03:18] LABS: CPK CREATINE PHOSPHOKINASE 92.0 U/L (46-171); MB/CK RELATIVE INDEX 3.36 (< OR =4)
[2025-07-23] MEDS: FUROSEMIDE 40 MG/4 ML VIAL IV ONE (05:32)
[2025-07-23] MEDS ORDERED: FISH120016 PO (08:22)
[2025-07-23] MEDS ORDERED: HOME MED LIST COMPLETE! XX SCH (08:25)
[2025-07-23] MEDS ORDERED: ALBUTEROL 90 MCG/ACT 8 GM HFA INHALER INH PRN (11:50)
[2025-07-23] MEDS: ROSUVASTATIN 10 MG TAB PO SCH (12:38)
[2025-07-23] MEDS: FERROUS GLUCONATE 324 MG TAB PO SCH (12:39)
[2025-07-23] MEDS: ASPIRIN 81 MG ENTERIC TABLET PO SCH (12:39)
[2025-07-23] MEDS: PANTOPRAZOLE 40MG TAB PO SCH (12:39)
[2025-07-23] MEDS: MEMANTINE 5 MG TABLET PO SCH (12:39)
[2025-07-23] MEDS: amLODIPine 5 MG TAB PO SCH (12:41)
[2025-07-23] MEDS: EZETIMIBE 10 MG TABLET PO SCH (12:41)
[2025-07-23] MEDS: METOPROLOL TART 12.5 MG PER 1/2 TAB PO SCH (12:42)
[2025-07-23] MEDS: ISOSORBIDE MONONITRATE 60 MG XR TAB PO SCH (12:43)
[2025-07-23] MEDS: RANOLAZINE 500MG ER TAB PO SCH (13:17)
[2025-07-23] MEDS: TICAGRELOR 90 MG TABLET PO SCH (13:18)
[2025-07-23] MEDS: HEPARIN SOD 5000 UNITS/ML 1 ML VIAL/SYRINGE SC SCH (13:20)
[2025-07-23] MEDS: FUROSEMIDE 40 MG/4 ML VIAL IV SCH (16:23)
[2025-07-24 05:17] VITALS: BP 112/58; TEMP 97.9; O2SAT 96
[2025-07-24 05:29] LABS: PLATELET COUNT, AUTOMATED 179 10^3/uL (150-450)
[2025-07-24 05:54] LABS: ALT/SGPT 11.0 U/L (7.0-40); AST/SGOT 23.0 U/L (<34); CALCIUM LEVEL 7.9 MG/DL (8.3-10.6); CARBON DIOXIDE LEVEL 25.0 MMOL/L (20-31); CHLORIDE LEVEL 106.0 MMOL/L (98-107); CREATININE FOR GFR 1.5 MG/DL (0.70-1.30); GLOMERULAR FILTRATION RATE 46.5 (>35); POTASSIUM SERUM 3.9 MMOL/L (3.5-5.1); SODIUM LEVEL 142.0 MMOL/L (136-145)
[2025-07-24 08:00] VITALS: BP 106/51; TEMP 97.6; O2SAT 97
[2025-07-24 12:14] VITALS: BP 113/57; TEMP 97.9; O2SAT 98
[2025-07-24 15:42] VITALS: BP 121/59; TEMP 98.1; O2SAT 97
[2025-07-24 19:48] VITALS: BP 114/58; TEMP 98.4; O2SAT 98
[2025-07-24 23:31] VITALS: BP 122/58; TEMP 98; O2SAT 98
[2025-07-25 04:20] VITALS: BP 112/55; TEMP 98.2; O2SAT 92
[2025-07-25 08:07] VITALS: BP 118/60; TEMP 98.2; O2SAT 96
[2025-07-25] MEDS: LR 1,000 ML IV SCH (08:12)
[2025-07-25 10:11] LABS: APPEARANCE, URINE CLEAR (CLEAR); BACTERIA, URINE AUTO NEGATIVE (NEGATIVE); BILIRUBIN, URINE AUTO NEGATIVE (NEGATIVE); BLOOD, URINE BLOOD NEGATIVE (NEGATIVE); GLUCOSE, URINE (UA) AUTO 3+ mg/dL (NEGATIVE); KETONE, URINE AUTO NEGATIVE (NEGATIVE); LEUKOCYTE ESTERASE, URINE AUTO NEGATIVE (NEGATIVE); NITRITE, URINE AUTO NEGATIVE (NEGATIVE); PROTEIN, URINE AUTO NEGATIVE (NEGATIVE); RBC, URINE AUTO 1 /HPF (0-3); SPECIFIC GRAVITY URINE AUTO 1.017 (1.002-1.035); SQUAMOUS EPITHELIAL CELL UR AU 1 /HPF (0-6); UROBILINOGEN, URINE AUTO 2.0 mg/dL (0.0-2.0); WBC, URINE AUTO 3 /HPF (0-3); YEAST LIKE CELL URINE AUTO SMALL
[2025-07-25 11:39] VITALS: BP 112/59; TEMP 97.8; O2SAT 92
[2025-07-25 12:19] VITALS: BP 133/63; TEMP 97.2; O2SAT 94
[2025-07-25 12:46] LABS: CALCIUM LEVEL 7.8 MG/DL (8.3-10.6); CARBON DIOXIDE LEVEL 24.0 MMOL/L (20-31); CHLORIDE LEVEL 112.0 MMOL/L (98-107); CREATININE FOR GFR 1.39 MG/DL (0.70-1.30); GLOMERULAR FILTRATION RATE 50.9 (>35); POTASSIUM SERUM 4.2 MMOL/L (3.5-5.1); SODIUM LEVEL 145.0 MMOL/L (136-145)
[2025-07-25 13:58] VITALS: BP 116/70; TEMP 97.9; O2SAT 97
[2025-07-25 20:19] VITALS: BP 132/64; TEMP 98.4; O2SAT 94
[2025-07-26 06:00] VITALS: BP 119/58; TEMP 97.7; O2SAT 91
[2025-07-26 06:38] LABS: PLATELET COUNT, AUTOMATED 201 10^3/uL (150-450)
[2025-07-26 06:57] LABS: CALCIUM LEVEL 7.9 MG/DL (8.3-10.6); CARBON DIOXIDE LEVEL 24.0 MMOL/L (20-31); CHLORIDE LEVEL 113.0 MMOL/L (98-107); CREATININE FOR GFR 1.31 MG/DL (0.70-1.30); GLOMERULAR FILTRATION RATE 54.7 (>35); POTASSIUM SERUM 4.2 MMOL/L (3.5-5.1); SODIUM LEVEL 149.0 MMOL/L (136-145)
[2025-07-26 08:43] VITALS: BP 135/64; TEMP 98.1; O2SAT 97
[2025-07-26 12:00] VITALS: BP 122/55; TEMP 97.7; O2SAT 97
== END 2025-07-26 16:15 | disposition home or self-care (01) ==
LOC: M ED 21:53 → M ED INP 21:54 → M PCU 07-23 06:29 → M MS4PR 07-25 13:50
PROVIDERS: ADMIT Internal Medicine; ATTEND Student in an Organized Health Care Education/Training Program
DX: I50.9 Heart failure, unspecified (principal); N18.9 Chronic kidney disease, unspecified; D64.9 Anemia, unspecified; R06.00 Dyspnea, unspecified; I25.10 Atherosclerotic heart disease of native coronary artery without angina pectoris; E87.0 Hyperosmolality and hypernatremia; I73.9 Peripheral vascular disease, unspecified; Z95.828 Presence of other vascular implants and grafts; I11.0 Hypertensive heart disease with heart failure; J44.9 Chronic obstructive pulmonary disease, unspecified; J84.9 Interstitial pulmonary disease, unspecified; G47.33 Obstructive sleep apnea (adult) (pediatric); C61 Malignant neoplasm of prostate; Z92.3 Personal history of irradiation; Z87.19 Personal history of other diseases of the digestive system; I25.2 Old myocardial infarction; Z95.5 Presence of coronary angioplasty implant and graft; Z99.81 Dependence on supplemental oxygen; Z86.73 Personal history of transient ischemic attack (TIA), and cerebral infarction without residual deficits; Z79.899 Other long term (current) drug therapy; Z79.82 Long term (current) use of aspirin
CPT/HCPCS: 36415; 71045; 71275; 76775; 80048; 80053; 80076; 81001; 82550; 82553; 83605; 83880; 84145; 84484; 85025; 85027; 85610; 85730; 86850; 86900; 86901; 87486; 87581; 87633; 87798; 93005; 93041; 93306; 94760; 96372; 96374; 97161; 97530; 99285; G0378; J1938; Q9967

== ENCOUNTER 2025-07-29 13:54 | Outpatient (CLI) | payer MEDICARE ==
[~2025-07-29] VITALS: Ht 175.3 cm; Wt 86.4 kg
[~2025-07-29 13:54] MED LIST changes: +ALBUTEROL SULFATE 2.5 MG/0.5 ML INH CONCENTRATE NEB SOLN INH PRN; +EPINEPHrine INJ 1 MG/ML 1ML AMP IM PRN; +FISH120016 PO; +diphenhydrAMINE 50 MG/ML VIAL IV PRN
[2025-07-29 14:05] VITALS: BP 155/74; O2SAT 98
[2025-07-29] MEDS: IRON SUCROSE 300 MG in NS 250 ML IV ONE (14:47)
[2025-07-29 16:25] VITALS: BP 134/65; O2SAT 99
== END 2025-07-29 16:25 ==
LOC: M INFU 13:54
PROVIDERS: ATTEND Student in an Organized Health Care Education/Training Program
DX: D50.9 Iron deficiency anemia, unspecified (principal)
CPT/HCPCS: 96365; 96366; J1756